=== PATIENT | male | born 1995 | race Caucasian/White ===

== ENCOUNTER 2018-09-01 16:37 | Emergency (ER) | payer OTHER, SELFPAY ==
--- NOTE | 2018-09-01 16:43 | ED_ITS ---
HPI - Extremity Problem <JUANA Beck - Last Filed: 09/01/18 16:43> General Stated complaint: left arm thinks is infected Time Seen by Provider: 09/01/18 16:40 Related Data Previous Rx's Medication Instructions Recorded doxycycline monohydrate 100 mg PO BID 10 Days #20 cap 09/01/18 Allergies Allergy/AdvReac Type Severity Reaction Status Date / Time Cephalosporins Allergy Mild Hives Verified 09/01/18 16:57 <Michael Talbert DO - Last Filed: 09/05/18 20:45> General Source: patient Mode of arrival: ambulatory Limitations: no limitations History of Present Illness HPI Narrative: 23-year-old male with history of IV drug abuse presents with a few days gradually worsening swelling, pain and redness of his left forearm, mainly on the dorsal surface. He denies any injury but does admit to attempting to inject heroin a few days ago and he thinks he might have missed. He admits to some subjective fever but denies any chills. He denies runny nose , sore throat or cough. He has no chest pain or shortness of breath. He denies any nausea, vomiting or abdominal pain. He has full but painful range of motion at the left wrist. Cap refill and sensation are intact. MD Complaint: extremity pain and extremity swelling Onset (ago): day(s) Pain Consistency: constant Location: left Quality: burning and aching Radiation: none Relieving factors: immobilization Exacerbating factors: range of motion and palpation Associated symptoms: fever <Michael Talbert DO - Last Filed: 09/05/18 20:45> Review of Systems All systems reviewed & are unremarkable except as noted in HPI and below Constitutional Denies chills, Denies fever(s), Denies lethargy and Denies weakness Eyes Denies change in vision, Denies eye discharge, Denies irritation and Denies loss of vision ENT Ears, Nose, Mouth, and Throat: Denies change in voice, Denies neck pain and Denies sore throat Cardiovascular Denies chest pain, Denies irregular heart rhythm, Denies lightheadedness, Denies palpitations, Denies dyspnea, Denies dyspnea on exertion and Denies orthopnea Respiratory Denies cough, Denies dyspnea, Denies dyspnea on exertion and Denies wheezing Gastrointestinal Gastrointestinal: Denies abdominal pain, Denies change in bowel habits, Denies diarrhea, Denies nausea and Denies vomiting Genitourinary Denies hematuria, Denies flank pain, Denies urinary incontinence and Denies urinary urgency Musculoskeletal Reports limited range of motion and Denies neck pain Integumentary/Breasts Denies pruritus, Reports erythema, Denies rash, Reports skin pain, Reports skin swelling and Denies wounds Neurologic Denies confusion, Denies loss of vision and Denies weakness Psychiatric Denies anxiety, Denies confusion, Denies depression, Denies homicidal ideation and Denies suicidal ideation Endocrine Denies palpitations Hematologic/Lymphatic Denies easy bruising Allergic/Immunologic Denies wheezing Exam <SHERINE BeckP - Last Filed: 09/01/18 16:43> Initial Vital Signs Initial Vital Signs: Vital Signs Temperature 97.9 F 09/01/18 16:51 Pulse Rate 85 09/01/18 16:51 Respiratory Rate 16 09/01/18 16:51 Blood Pressure 148/94 H 09/01/18 16:51 Pulse Oximetry 99 09/01/18 16:51 <Michael Talbert DO - Last Filed: 09/05/18 20:45> Narrative Exam Narrative: 23-year-old male in no obvious significant distress. Initial Vital Signs Initial Vital Signs: Vital Signs Temperature 97.9 F 09/01/18 16:51 Pulse Rate 85 09/01/18 16:51 Respiratory Rate 16 09/01/18 16:51 Blood Pressure 148/94 H 09/01/18 16:51 Pulse Oximetry 99 09/01/18 16:51 Const General: cooperative and well developed Nutritional Appearance: well nourished Orientation: alert, awake, oriented x3 and not confused [facility] Head: normocephalic and atraumatic Ears: external ears normal and TM's normal bilaterally Nose: external nose normal and No nasal discharge Face and sinus: sinuses nontender, face symmetric, no sinus tenderness and No dry mucous membranes Mouth: oral mucosae normal and moist mucous membranes Teeth and gingiva: dentition normal Throat: tonsils normal and uvula midline Neck Neck: normal visual inspection, trachea midline, No lymphadenopathy, No midline deformity and No JVD Lymphatic: No lymphedema Resp Effort & Inspection: normal respiratory effort, able to speak in complete sentences, no respiratory distress and no use of accessory muscles Auscultation: clear to auscultation bilaterally, no rales, no rhonchi and no wheezes Cardio Rate: regular rate Rhythm: regular rhythm Heart Sounds: no click, no gallops, no murmurs and no rubs Pulses: normal peripheral pulses GI Inspection: non-distended Palpation: soft, no hepatosplenomegaly, No guarding, No pulsatile mass and No tender Auscultation: normal bowel sounds Back/Spine/Pelvis Back: No CVA tenderness Cervical Spine: cervical ROM normal and No pain with cervical ROM Thoracic/Lumbar Spine: thoracic and lumbar spine normal to inspection Skin General: no rashes or lesions noted, No jaundice and No petechiae Other: Minimal edema and erythema with some palpable warmth on left distal forearm. No fluctuance or induration to suggest abscess. <Humaira Wade DO - Last Filed: 09/01/18 20:09> Initial Vital Signs Initial Vital Signs: Vital Signs Temperature 97.9 F 09/01/18 16:51 Pulse Rate 85 09/01/18 16:51 Respiratory Rate 16 09/01/18 16:51 Blood Pressure 148/94 H 09/01/18 16:51 Pulse Oximetry 99 09/01/18 16:51 Course <JUANA Beck - Last Filed: 09/01/18 16:43> Orders Ordered: Discontinued Medications Doxycycline Hyclate (Vibramycin) 100 mg PO NOW ONE Stop: 09/01/18 17:54 Last Admin: 09/01/18 18:15 Dose: 100 mg Vancomycin HCl 1,500 mg/ (Sodium Chloride) 500 mls @ 333.333 mls/hr IV NOW ONE Stop: 09/01/18 16:52 Last Infusion: 09/01/18 20:17 Dose: 0 mls/hr Admin: 09/01/18 18:14 Dose: 333.333 mls/hr Vital Signs - 8 hr 09/01/18 16:51 09/01/18 19:33 Temperature 97.9 F Pulse Rate 85 87 Respiratory Rate 16 16 Blood Pressure 148/94 H Blood Pressure [Left Arm] 130/81 Pulse Oximetry 99 100 <Michael Talbert DO - Last Filed: 09/05/18 20:45> Orders Ordered: Discontinued Medications Doxycycline Hyclate (Vibramycin) 100 mg PO NOW ONE Stop: 09/01/18 17:54 Last Admin: 09/01/18 18:15 Dose: 100 mg Vancomycin HCl 1,500 mg/ (Sodium Chloride) 500 mls @ 333.333 mls/hr IV NOW ONE Stop: 09/01/18 16:52 Last Infusion: 09/01/18 20:17 Dose: 0 mls/hr Admin: 09/01/18 18:14 Dose: 333.333 mls/hr Vital Signs - 8 hr 09/01/18 16:51 09/01/18 19:33 Temperature 97.9 F Pulse Rate 85 87 Respiratory Rate 16 16 Blood Pressure 148/94 H Blood Pressure [Left Arm] 130/81 Pulse Oximetry 99 100 <Humaira Wade DO - Last Filed: 09/01/18 20:09> Orders Ordered: Discontinued Medications Doxycycline Hyclate (Vibramycin) 100 mg PO NOW ONE Stop: 09/01/18 17:54 Last Admin: 09/01/18 18:15 Dose: 100 mg Vancomycin HCl 1,500 mg/ (Sodium Chloride) 500 mls @ 333.333 mls/hr IV NOW ONE Stop: 09/01/18 16:52 Last Infusion: 09/01/18 20:17 Dose: 0 mls/hr Admin: 09/01/18 18:14 Dose: 333.333 mls/hr Vital Signs - 8 hr 09/01/18 16:51 09/01/18 19:33 Temperature 97.9 F Pulse Rate 85 87 Respiratory Rate 16 16 Blood Pressure 148/94 H Blood Pressure [Left Arm] 130/81 Pulse Oximetry 99 100 MDM - Extremity (Nontraumatic) <JUANA Beck - Last Filed: 09/01/18 16:43> Lab Data Result diagrams: 09/01/18 17:48 09/01/18 17:48 Lab Results 09/01/18 09/01/18 Range/Units 17:48 17:48 WBC 9.0 (4.5-11.0) X10^3/uL RBC 4.34 L (4.5-5.9) X10^6/uL Hgb 13.9 (13.5-17.5) g/dL Hct 39.4 L (41-53) % MCV 90.9 (80-100) fL MCH 32.1 (26-34) PG MCHC 35.3 (30-36) % RDW 13.4 (11.6-14.8) % Plt Count 222 (150-400) X10^3/uL Neut % (Auto) 76.9 H (50-75) % Lymph % (Auto) 12.4 L (25-40) % [place] % (Auto) 8.0 (3-14) % Eos % (Auto) 2.4 (2-4) % Baso % (Auto) 0.3 (0-2) % Neut # (Auto) 6900 H (5414-0747) /uL Sodium 144 (137-145) mmol/L Potassium 3.9 (3.4-5.1) mmol/L Chloride 101 (98-107) mmol/L Carbon Dioxide 30 (22-32) mmol/L BUN 14 (9-20) mg/dL Creatinine 0.80 (0.66-1.25) mg/dL Estimated GFR > 60.0 (>60) mL/min BUN/Creatinine Ratio 17.5 (6-22) Glucose 101 H (70-100) mg/dL Calcium 9.0 (8.4-10.2) mg/dL <Michael Talbert, DO - Last Filed: 09/05/18 20:45> Lab Data Lab Results 09/01/18 09/01/18 Range/Units 17:48 17:48 WBC 9.0 (4.5-11.0) X10^3/uL RBC 4.34 L (4.5-5.9) X10^6/uL Hgb 13.9 (13.5-17.5) g/dL Hct 39.4 L (41-53) % MCV 90.9 (80-100) fL MCH 32.1 (26-34) PG MCHC 35.3 (30-36) % RDW 13.4 (11.6-14.8) % Plt Count 222 (150-400) X10^3/uL Neut % (Auto) 76.9 H (50-75) % Lymph % (Auto) 12.4 L (25-40) % [place] % (Auto) 8.0 (3-14) % Eos % (Auto) 2.4 (2-4) % Baso % (Auto) 0.3 (0-2) % Neut # (Auto) 6900 H (8224-8293) /uL Sodium 144 (137-145) mmol/L Potassium 3.9 (3.4-5.1) mmol/L Chloride 101 (98-107) mmol/L Carbon Dioxide 30 (22-32) mmol/L BUN 14 (9-20) mg/dL Creatinine 0.80 (0.66-1.25) mg/dL Estimated GFR > 60.0 (>60) mL/min BUN/Creatinine Ratio 17.5 (6-22) Glucose 101 H (70-100) mg/dL Calcium 9.0 (8.4-10.2) mg/dL MDM Narrative Medical decision making narrative: Cellulitis versus small early abscess or considered the most likely etiologies given recent injection of IV drugs and subsequent erythema, warmth and pain. There is no sign of fluctuance suggesting incision and drainage is needed. The likely cellulitis is isolated and in the absence of significant abnormalities with vital signs are labs are is no indication that the patient needs admission prior to the trial of outpatient antibiotics. DVT and superficial thrombophlebitis also considered but thought less likely given lack of findings on ultrasound. Regardless of etiology there are no signs or symptoms consistent compartment syndrome such as numbness, tingling pain out of proportion, pallor or pulselessness. Extensive bedside discussion regarding return precautions and voiced and patient able to verbalize understanding. <Humaira Wade, DO - Last Filed: 09/01/18 20:09> Lab Data Lab Results 09/01/18 09/01/18 Range/Units 17:48 17:48 WBC 9.0 (4.5-11.0) X10^3/uL RBC 4.34 L (4.5-5.9) X10^6/uL Hgb 13.9 (13.5-17.5) g/dL Hct 39.4 L (41-53) % MCV 90.9 (80-100) fL MCH 32.1 (26-34) PG MCHC 35.3 (30-36) % RDW 13.4 (11.6-14.8) % Plt Count 222 (150-400) X10^3/uL Neut % (Auto) 76.9 H (50-75) % Lymph % (Auto) 12.4 L (25-40) % [place] % (Auto) 8.0 (3-14) % Eos % (Auto) 2.4 (2-4) % Baso % (Auto) 0.3 (0-2) % Neut # (Auto) 6900 H (4029-5758) /uL Sodium 144 (137-145) mmol/L Potassium 3.9 (3.4-5.1) mmol/L Chloride 101 (98-107) mmol/L Carbon Dioxide 30 (22-32) mmol/L BUN 14 (9-20) mg/dL Creatinine 0.80 (0.66-1.25) mg/dL Estimated GFR > 60.0 (>60) mL/min BUN/Creatinine Ratio 17.5 (6-22) Glucose 101 H (70-100) mg/dL Calcium 9.0 (8.4-10.2) mg/dL Imaging Data Venous US: Radiologist's impression: [address] [address] Ultrasound Report Signed Patient: Bro Carson TMR#: [id number] : 1995Acct:[id number] Age/Sex: 23 / MDate of Service: 09/01/18 Loc: ED Accession Number: [id number] Procedure: US periph venous up extrem lt Ordering Provider: Michael Talbert D.O. PROCEDURE: US PERIPH VENOUS UP EXTREM LT INDICATIONS: LEFT ARM PAIN, EDEMA TECHNIQUE: Real-time imaging, as well as color and pulse Doppler interrogation, was performed of the left upper extremity deep veins from the inferior neck to the antecubital fossa. COMPARISON: None. FINDINGS: The internal jugular vein, visualized portions of the subclavian vein , axillary, and brachial veins are free of intraluminal thrombus. Where physically possible, the veins are normally compressible. Color and pulse Doppler demonstrate normal intraluminal flow, with expected phasicity and pulsatility. Additional scanning of the cephalic and basilic veins of the superficial system demonstrate normal compressibility, without thrombus. IMPRESSION: No DVT in the left upper extremity. Dictated by: Emory Snyder M.D. on 09/01/2018 at 18:28 Approved by: Emory Snyder M.D. on 09/01/2018 at 18:29 MDM Narrative Medical decision making narrative: Patient signed out to myself by Dr. Talbert, awaiting labs. CBC, BMP and blood culture and venous US. US is negative CBC shows leukocytosis, bmp also shows no major abnormalities. Patient evaluated by myself and consistent with cellulitis. US shows no dvt or vascular involvement. Exam shows slight erythema and swelling, neurovascularly intact. Patient and I reviewed labs, US findings and plan for antibiotics. He has first dose of doxycycline and received IV Vancomycin in department, plan for oral antibiotics and return if not improving. Vitals stable prior to discharge , no signs on sepsis. Discharge Plan Departure Patient Disposition: Home Clinical Impression: Cellulitis Discharge Date/Time: 09/01/18 20:18 Interventions: ED Discharge Assessment Last Done: 09/01/18 20:17 Instructions: DI for Cellulitis -- Adult Activity Restrictions/Additional Instructions: *You have been diagnosed with [ acute cellulitis of the left upper extremity ] *What to do: *Take medications as directed *Follow up with your primary care provider in 2-3 days, call for an appointment. Let them know you were seen in the Emergency Department and that we ask that you be seen in follow up *Return to ER if you should have any new, worsening or concerning symptoms , such as [increasing pain, redness or swelling, numbness, tingling or other bothersome symptoms ] Prescriptions: New doxycycline monohydrate 100 mg capsule 100 mg PO BID 10 Days Qty: 20 RF: 0 Stand Alone Forms: Work Release Note <Michael Talbert DO - Last Filed: 09/05/18 20:45> Cosign ED Attending Cosdulceature Attestation: I was immediately available in the department for consultation. Documentation has been reviewed. I agree with assessment and plan.
--- NOTE | 2018-09-01 16:49 | DI.US.S_ITS ---
PROCEDURE: US PERIPH VENOUS UP EXTREM LT INDICATIONS: LEFT ARM PAIN, EDEMA TECHNIQUE: Real-time imaging, as well as color and pulse Doppler interrogation, was performed of the left upper extremity deep veins from the inferior neck to the antecubital fossa. COMPARISON: None. FINDINGS: The internal jugular vein, visualized portions of the subclavian vein, axillary, and brachial veins are free of intraluminal thrombus. Where physically possible, the veins are normally compressible. Color and pulse Doppler demonstrate normal intraluminal flow, with expected phasicity and pulsatility. Additional scanning of the cephalic and basilic veins of the superficial system demonstrate normal compressibility, without thrombus. IMPRESSION: No DVT in the left upper extremity. Dictated by: Emory Snyder M.D. on 09/01/2018 at 18:28 Approved by: Emory Snyder M.D. on 09/01/2018 at 18:29
[2018-09-01 16:51] VITALS: BP 148/94; PULSE 85; RESP 16; TEMP 36.6; O2SAT 99
[2018-09-01 18:03] LABS: Add Manual Diff / Slide Review NO; Basophils Percent Auto 0.3 % (0-2); Eosinophils Percent Auto 2.4 % (2-4); Hematocrit 39.4 % (41-53); Hemoglobin 13.9 g/dL (13.5-17.5); Lymphocytes Percent Auto 12.4 % (25-40); Mean Corpuscular HGB Conc 35.3 % (30-36); Mean Corpuscular Hemoglobin 32.1 PG (26-34); Mean Corpuscular Volume 90.9 fL (80-100); Neutrophils Absolute Auto 6900 /uL (3000-5900); Neutrophils Percent Auto 76.9 % (50-75); Platelet Count 222 X10^3/uL (150-400); Red Blood Cell Count 4.34 X10^6/uL (4.5-5.9); Red Cell Distribution Width 13.4 % (11.6-14.8)
[2018-09-01] MEDS: VANCOMYCIN 1,500 MG in SODIUM CHLORIDE 0.9% 500 ML 333.333 ML IV (18:14)
[2018-09-01] MEDS: DOXYCYCLINE HYCLATE 100 MG TABLET PO (18:15)
[2018-09-01 18:17] LABS: BUN Creatinine Ratio 17.5 (6-22); Blood Urea Nitrogen 14 mg/dL (9-20); Carbon Dioxide 30 mmol/L (22-32); Chloride 101 mmol/L (98-107); Estimated Glomerular Filt Rate > 60.0 mL/min (>60); Glucose 101 mg/dL (70-100); HEMOLYSIS < 15 (0-50); Potassium 3.9 mmol/L (3.4-5.1); Sodium 144 mmol/L (137-145)
[2018-09-01 19:33] VITALS: BP 130/81; PULSE 87; RESP 16; O2SAT 100
== END 2018-09-01 20:18 | disposition home or self-care (01) ==
PROVIDERS: Emergency Medicine; Emergency Provider Emergency Medicine
DX: L03.114 Cellulitis of left upper limb (principal)
CPT/HCPCS: 36415; 36591; 80048; 85025; 87040; 93971; 96365; 96366; 99283; 99284

== ENCOUNTER 2018-09-25 18:26 | Emergency (ER) | payer OTHER, SELFPAY ==
[2018-09-25 18:35] VITALS: BP 166/95; PULSE 115; RESP 20; TEMP 36.7; O2SAT 98
[2018-09-25 18:52] VITALS: BP 166/95; PULSE 97; RESP 16
--- NOTE | 2018-09-25 19:04 | DI.US.S_ITS ---
PROCEDURE: US SCROTUM INDICATIONS: testicular pain / swelling TECHNIQUE: Real-time scanning was performed of the scrotum and testicles, with image documentation. Color and pulse Doppler interrogation was performed of both testicles. COMPARISON: None. FINDINGS: Right: Testicle is normal in size at 4.3 x 1.9 x 2.6 cm, and homogenous in echotexture. Epididymis is normal in overall size and morphology. No hydrocele or varicoceles. Overlying scrotal skin is normal in thickness. Left: Testicle is normal in size at 4.4 x 1.8 x 2.6 cm, and homogeneous in echotexture. Epididymis is normal in overall size and morphology. No hydrocele or varicoceles. Overlying scrotal skin is normal in thickness. Doppler: Color and pulse Doppler demonstrate normal and symmetric arterial flow in both testicles. IMPRESSION: Negative examination as above. Dictated by: Boy Bravo M.D. on 09/25/2018 at 20:19 Approved by: Boy Bravo M.D. on 09/25/2018 at 20:19
--- NOTE | 2018-09-25 19:04 | PC.NURSE ---
reports, left lower abdominal pain, with bilateral testicle pain, onset yesterday, denies injuries, hx of epididymitis. felt feverish and with sweaty. denies STD, sexual active with one person the last 6 months. tetanus up to date. has taken tylenol 500mg 2 tabs, last dose at 2pm. denies hx of staph infections or mrsa.
--- NOTE | 2018-09-25 19:56 | ED.MALEGU ---
HPI - Male Genitourinary General Chief complaint: Urogenital-Male Stated complaint: LOWER ABDOMINAL PAIN/PAINFUL URINATION Time Seen by Provider: 09/25/18 18:30 Source: patient Mode of arrival: ambulatory Limitations: no limitations History of Present Illness HPI Narrative: 23 year old male, history of IVDA presents with pain in L testicle. He denies fever, chills, or injury. He's had epididymitis in the past and states this feels similar. He denies dysuria, frequency or urgency. He denies any discharge. He is sexually active but he has been with the same partner for quite some time. His pain is worse when his scrotum moves and improves with rest MD Complaint: testicle pain Onset (ago): hour(s) Duration: constant Location: left testicle Quality: aching Relieving factors: rest Exacerbating factors: movement Reports denies other symptoms Related Data Allergies Allergy/AdvReac Type Severity Reaction Status Date / Time Cephalosporins Allergy Mild Hives Verified 09/01/18 16:57 Review of Systems Review of Systems All systems reviewed & are unremarkable except as noted in HPI and below Constitutional Denies chills, Denies fever(s), Denies lethargy and Denies weakness Eyes Denies change in vision, Denies eye discharge, Denies irritation and Denies loss of vision ENT Ears, Nose, Mouth, and Throat: Denies change in voice, Denies neck pain and Denies sore throat Cardiovascular Denies chest pain, Denies irregular heart rhythm, Denies lightheadedness, Denies palpitations, Denies dyspnea, Denies dyspnea on exertion and Denies orthopnea Respiratory Denies cough, Denies dyspnea, Denies dyspnea on exertion and Denies wheezing Gastrointestinal Gastrointestinal: Denies abdominal pain, Denies change in bowel habits, Denies diarrhea, Denies nausea and Denies vomiting Genitourinary Denies hematuria, Denies flank pain, Reports testicular pain, Denies urinary incontinence and Denies urinary urgency Musculoskeletal Denies neck pain Integumentary/Breasts Denies pruritus, Denies erythema, Denies rash and Denies wounds Neurologic Denies confusion, Denies loss of vision and Denies weakness Psychiatric Denies anxiety, Denies confusion, Denies depression, Denies homicidal ideation and Denies suicidal ideation Endocrine Denies palpitations Hematologic/Lymphatic Denies easy bruising Allergic/Immunologic Denies wheezing [facility] Medical History Abscess (Acute) IBS (irritable bowel syndrome) (Acute) Ulcerative colitis (Acute) Social History Smoking Status: Current every day smoker Exam Narrative Exam Narrative: GEN: AOx3 and in mild distress EYES: Pupils are equal, round, and reactive to light and accommodation. Extraoccular muscles are intact bilaterally. There is no subconjunctival hemorrhage or exudate. CHEST: Lungs are clear to auscultation bilaterally and free of wheezes, rales, or rhonchi. Heart rate is regular rhythm, there are no murmurs, clicks, rubs, or gallops. There is no chest wall tenderness. ABD: Abdomen is soft and nontender. There is no guarding or rebound. Bowel sounds are normal in all 4 quadrants. There is no mass or organomegaly. TESTICULAR EXAM: Performed while standing, no evidence of hernia. Tenderness to palpation of left testicle but no palpable mass or swelling. No erythema, warmth or obvious external manifestation EXT: Full painless ROM of all extremities with no loss of sensation or strength. SKIN: Warm, pink, and dry. No erythema or rash Initial Vital Signs Initial Vital Signs: Vital Signs Temperature 98.0 F 09/25/18 18:35 Pulse Rate 115 H 09/25/18 18:35 Respiratory Rate 20 09/25/18 18:35 Blood Pressure 166/95 H 09/25/18 18:35 Pulse Oximetry 98 09/25/18 18:35 Course Orders Ordered: ED Orders 09/25/18 19:04 US scrotum Stat 09/25/18 19:11 Urine Chlamydia Gonorrhea PCR Stat Vital Signs - 8 hr 09/25/18 18:35 09/25/18 18:52 Temperature 98.0 F Pulse Rate 115 H 97 H Respiratory Rate 20 16 Blood Pressure 166/95 H Blood Pressure [Left Arm] 166/95 H Pulse Oximetry 98 MDM - Male Genitourinary Differential Diagnosis Likely urinary tract infection, urethritis, epididymitis and inguinal hernia Medical Records Attestation: I reviewed the patient's medical records. Lab Data Attestation: I reviewed the patient's lab results. Lab Results 09/25/18 Range/Units 19:11 Ur Chlamydia DNA (PCR) Not detected N gonorrhoeae DNA (PCR) Not detected Urine Dip Bedside Urine Glucose Negative Bedside Urine Bilirubin - Negative Bedside Urine Ketone +/- 5 Urine Specific [place] 1.030 Bedside Urine Occult Blood - Negative Bedside Urine pH 6.0 Bedside Urine Protein +/- 15 Bedside Urine Urobilinogen - Negative Bedside Urine Nitrite - Negative Bedside Urine Leukocytes - Negative Esterase Imaging Data Testicular US: Radiologist's impression: Launch Image View Report History [address] [address] Ultrasound Report Signed Patient: Bro Carson MR#: [id number] : 1995 Acct:[id number] Age/Sex: 23 / M Date of Service: 09/25/18 Loc: ED Accession Number: [id number] Procedure: US scrotum Ordering Provider: Michael Talbert D.O. PROCEDURE: US SCROTUM INDICATIONS: testicular pain / swelling TECHNIQUE: Real-time scanning was performed of the scrotum and testicles, with image documentation. Color and pulse Doppler interrogation was performed of both testicles. COMPARISON: None. FINDINGS: Right: Testicle is normal in size at 4.3 x 1.9 x 2.6 cm, and homogenous in echotexture. Epididymis is normal in overall size and morphology. No hydrocele or varicoceles. Overlying scrotal skin is normal in thickness. Left: Testicle is normal in size at 4.4 x 1.8 x 2.6 cm, and homogeneous in echotexture. Epididymis is normal in overall size and morphology. No hydrocele or varicoceles. Overlying scrotal skin is normal in thickness. Doppler: Color and pulse Doppler demonstrate normal and symmetric arterial flow in both testicles. IMPRESSION: Negative examination as above. Dictated by: Boy Bravo M.D. on 09/25/2018 at 20:19 Approved by: Boy Bravo M.D. on 09/25/2018 at 20:19 MDM Narrative Medical decision making narrative: urine negative for UTI or STD. US unremarkable. No indication for ABX at this time. Recommended OTC pain meds. Discussed work note Discharge Plan Departure Patient Disposition: Home Clinical Impression: Pain in left testicle Discharge Date/Time: 09/25/18 21:31 Interventions: ED Discharge Assessment Last Done: 09/25/18 21:44 Instructions: DI for Testicular Pain Activity Restrictions/Additional Instructions: *You have been diagnosed with [ left testicular pain ] *What to do: *Take medications as directed *Follow up with your primary care provider in 2-3 days, call for an appointment. Let them know you were seen in the Emergency Department and that we ask that you be seen in follow up *Return to ER if you should have any new, worsening or concerning symptoms Referrals: Santino Schaefer MD [Non-Staff] - Yani Harding DO [Physician] - Micaela Silva MD [Physician] -
--- NOTE | 2018-09-25 20:00 | ED_ITS ---
HPI - Male Genitourinary General Chief complaint: Urogenital-Male Stated complaint: LOWER ABDOMINAL PAIN/PAINFUL URINATION Time Seen by Provider: 09/25/18 18:30 Source: patient Mode of arrival: ambulatory Limitations: no limitations History of Present Illness HPI Narrative: 23 year old male, history of IVDA presents with pain in L testicle. He denies fever, chills, or injury. He's had epididymitis in the past and states this feels similar. He denies dysuria, frequency or urgency. He denies any discharge. He is sexually active but he has been with the same partner for quite some time. His pain is worse when his scrotum moves and improves with rest MD Complaint: testicle pain Onset (ago): hour(s) Duration: constant Location: left testicle Quality: aching Relieving factors: rest Exacerbating factors: movement Reports denies other symptoms Related Data Allergies Allergy/AdvReac Type Severity Reaction Status Date / Time Cephalosporins Allergy Mild Hives Verified 09/01/18 16:57 Review of Systems Review of Systems All systems reviewed & are unremarkable except as noted in HPI and below Constitutional Denies chills, Denies fever(s), Denies lethargy and Denies weakness Eyes Denies change in vision, Denies eye discharge, Denies irritation and Denies loss of vision ENT Ears, Nose, Mouth, and Throat: Denies change in voice, Denies neck pain and Denies sore throat Cardiovascular Denies chest pain, Denies irregular heart rhythm, Denies lightheadedness, Denies palpitations, Denies dyspnea, Denies dyspnea on exertion and Denies orthopnea Respiratory Denies cough, Denies dyspnea, Denies dyspnea on exertion and Denies wheezing Gastrointestinal Gastrointestinal: Denies abdominal pain, Denies change in bowel habits, Denies diarrhea, Denies nausea and Denies vomiting Genitourinary Denies hematuria, Denies flank pain, Reports testicular pain, Denies urinary incontinence and Denies urinary urgency Musculoskeletal Denies neck pain Integumentary/Breasts Denies pruritus, Denies erythema, Denies rash and Denies wounds Neurologic Denies confusion, Denies loss of vision and Denies weakness Psychiatric Denies anxiety, Denies confusion, Denies depression, Denies homicidal ideation and Denies suicidal ideation Endocrine Denies palpitations Hematologic/Lymphatic Denies easy bruising Allergic/Immunologic Denies wheezing [facility] Medical History Abscess (Acute) IBS (irritable bowel syndrome) (Acute) Ulcerative colitis (Acute) Social History Smoking Status: Current every day smoker Exam Narrative Exam Narrative: GEN: AOx3 and in mild distress EYES: Pupils are equal, round, and reactive to light and accommodation. Extraoccular muscles are intact bilaterally. There is no subconjunctival hemorrhage or exudate. CHEST: Lungs are clear to auscultation bilaterally and free of wheezes, rales, or rhonchi. Heart rate is regular rhythm, there are no murmurs, clicks, rubs, or gallops. There is no chest wall tenderness. ABD: Abdomen is soft and nontender. There is no guarding or rebound. Bowel sounds are normal in all 4 quadrants. There is no mass or organomegaly. TESTICULAR EXAM: Performed while standing, no evidence of hernia. Tenderness to palpation of left testicle but no palpable mass or swelling. No erythema, warmth or obvious external manifestation EXT: Full painless ROM of all extremities with no loss of sensation or strength. SKIN: Warm, pink, and dry. No erythema or rash Initial Vital Signs Initial Vital Signs: Vital Signs Temperature 98.0 F 09/25/18 18:35 Pulse Rate 115 H 09/25/18 18:35 Respiratory Rate 20 09/25/18 18:35 Blood Pressure 166/95 H 09/25/18 18:35 Pulse Oximetry 98 09/25/18 18:35 Course Orders Ordered: ED Orders 09/25/18 19:04 US scrotum Stat 09/25/18 19:11 Urine Chlamydia Gonorrhea PCR Stat Vital Signs - 8 hr 09/25/18 18:35 09/25/18 18:52 Temperature 98.0 F Pulse Rate 115 H 97 H Respiratory Rate 20 16 Blood Pressure 166/95 H Blood Pressure [Left Arm] 166/95 H Pulse Oximetry 98 MDM - Male Genitourinary Differential Diagnosis Likely urinary tract infection, urethritis, epididymitis and inguinal hernia Medical Records Attestation: I reviewed the patient's medical records. Lab Data Attestation: I reviewed the patient's lab results. Lab Results 09/25/18 Range/Units 19:11 Ur Chlamydia DNA (PCR) Not detected N gonorrhoeae DNA (PCR) Not detected Urine Dip Bedside Urine Glucose Negative Bedside Urine Bilirubin - Negative Bedside Urine Ketone +/- 5 Urine Specific [place] 1.030 Bedside Urine Occult Blood - Negative Bedside Urine pH 6.0 Bedside Urine Protein +/- 15 Bedside Urine Urobilinogen - Negative Bedside Urine Nitrite - Negative Bedside Urine Leukocytes - Negative Esterase Imaging Data Testicular US: Radiologist's impression: Launch Image View Report History [address] [address] Ultrasound Report Signed Patient: Bro Carson MR#: [id number] : 1995 Acct:[id number] Age/Sex: 23 / M Date of Service: 09/25/18 Loc: ED Accession Number: [id number] Procedure: US scrotum Ordering Provider: Michael Talbert D.O. PROCEDURE: US SCROTUM INDICATIONS: testicular pain / swelling TECHNIQUE: Real-time scanning was performed of the scrotum and testicles, with image documentation. Color and pulse Doppler interrogation was performed of both testicles. COMPARISON: None. FINDINGS: Right: Testicle is normal in size at 4.3 x 1.9 x 2.6 cm, and homogenous in echotexture. Epididymis is normal in overall size and morphology. No hydrocele or varicoceles. Overlying scrotal skin is normal in thickness. Left: Testicle is normal in size at 4.4 x 1.8 x 2.6 cm, and homogeneous in echotexture. Epididymis is normal in overall size and morphology. No hydrocele or varicoceles. Overlying scrotal skin is normal in thickness. Doppler: Color and pulse Doppler demonstrate normal and symmetric arterial flow in both testicles. IMPRESSION: Negative examination as above. Dictated by: Boy Bravo M.D. on 09/25/2018 at 20:19 Approved by: Boy Bravo M.D. on 09/25/2018 at 20:19 MDM Narrative Medical decision making narrative: urine negative for UTI or STD. US unremarkable. No indication for ABX at this time. Recommended OTC pain meds. Discussed work note Discharge Plan Departure Patient Disposition: Home Clinical Impression: Pain in left testicle Discharge Date/Time: 09/25/18 21:31 Interventions: ED Discharge Assessment Last Done: 09/25/18 21:44 Instructions: DI for Testicular Pain Activity Restrictions/Additional Instructions: *You have been diagnosed with [ left testicular pain ] *What to do: *Take medications as directed *Follow up with your primary care provider in 2-3 days, call for an appointment. Let them know you were seen in the Emergency Department and that we ask that you be seen in follow up *Return to ER if you should have any new, worsening or concerning symptoms Referrals: Santino Schaefer MD [Non-Staff] - Yani Harding DO [Physician] - Micaela Silva MD [Physician] -
[2018-09-25 21:05] LABS: Urine N gonorrhoeae NOT DETECTED
[2018-09-25 21:12] LABS: Urine Chlamydia NOT DETECTED
== END 2018-09-25 21:31 | disposition home or self-care (01) ==
PROVIDERS: Emergency Provider Emergency Medicine
DX: N50.812 Left testicular pain (principal)
CPT/HCPCS: 76870; 81003; 87491; 87591; 99283